=== PATIENT | female | born 1955 | race Caucasian/White ===

== ENCOUNTER 2024-04-07 09:55 | Day surgery (SDC) | payer MEDICARE, SELFPAY ==
[2024-04-07] VITALS (8 sets, daily range): BP systolic 124–158; BP diastolic 70–90; PULSE 61–77; RESP 14–19; TEMP 36.3–36.5; O2SAT 94–97; BMI 34.1
[2024-04-07] MEDS: ONDANSETRON INJ 2 MG/ML INJ 2 ML 4 MG IV (12:22)
[2024-04-07] MEDS: MIDAZOLAM INJ 1 MG/ML VIAL 2 ML (ASD USE ONLY) 2 MG IV (12:26)
[2024-04-07] MEDS: fentaNYL CIT INJ 50 mCg/ML AMP 2ML (ASD USE ONLY) IV (12:26)
[2024-04-07] MEDS: DiphenhydrAMINE INJ 50 MG/ML VIAL 25 MG IV (12:36)
== END 2024-04-07 13:30 | disposition home or self-care (01) ==
PROVIDERS: PCP Nurse Practitioner Family; Referring Provider Specialist; Visit Provider Specialist
PROC: (CPT 43239; principal; 2024-04-07 11:45)
DX: K22.2 Esophageal obstruction (principal); K22.70 Barrett's esophagus without dysplasia; K29.70 Gastritis, unspecified, without bleeding; K20.80 Other esophagitis without bleeding
CPT/HCPCS: 43239; 43248; A4649; C1769; J1200; J2250; J2405; J3010